=== PATIENT | female | born 1965 | race Asian ===

== ENCOUNTER 2024-07-10 20:49 | Emergency (ER) | payer SELFPAY ==
[2024-07-10 20:52] VITALS: BP 183/75; BMI 27.3
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
[2024-07-10 21:05] VITALS: BP 183/75
[2024-07-10 22:04] VITALS: BP 166/75
== END 2024-07-10 22:50 | disposition home or self-care (01) ==
LOC: EMR 20:49
PROVIDERS: EMERGENCY PHYSICIAN Emergency Medicine; FAMILY PHYSICIAN Internal Medicine
DX: S29.012A Strain of muscle and tendon of back wall of thorax, initial encounter (principal); V49.50XA Passenger injured in collision with unspecified motor vehicles in traffic accident, initial encounter; G62.9 Polyneuropathy, unspecified
CPT/HCPCS: 99284; 71046; 93005